=== PATIENT | female | born 1980 | race Caucasian/White ===

== ENCOUNTER 2022-10-25 06:37 | Emergency (ER) | payer BC ==
[~2022-10-25] VITALS: Ht 157.5 cm; Wt 54.2 kg
[2022-10-25] MEDS ORDERED: KLONOPIN0.5 MG (07:11)
[2022-10-25] MEDS ORDERED: CEPHALEXIN500 M1 PO (08:00)
[2022-10-25 08:13] VITALS: BP 116/52
--- OUTSIDE RECORDS SUMMARY | 2022-10-25 08:21 | XMS ---
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 EThea VISIT COUNT (12 MO.) 1 NEETA [facility] TOTAL 1 NOTE: Visits indicate total known visits. ED/UCC VISIT TRACKING (12 MO.) 10/25/2022 06:38 [facility] [place] TYPE: Emergency COMPLAINT: - POSS UTI INPATIENT VISIT TRACKING (12 MO.) No inpatient visits to display in this time frame [id number]
== END 2022-10-25 08:15 | disposition home or self-care (01) ==
LOC: ED 06:37
DX: N39.0 Urinary tract infection, site not specified (principal)
CPT/HCPCS: 81001; 84703; 87088; 99283; A9270

== ENCOUNTER 2023-05-16 07:10 | Emergency (ER) | payer BC ==
[~2023-05-16] VITALS: Ht 157.5 cm; Wt 50.4 kg
[~2023-05-16 07:10] MED LIST: CEPHALEXIN500 M1 PO; KLONOPIN0.5 MG
--- OUTSIDE RECORDS SUMMARY | 2023-05-16 07:14 | XMS ---
PreManage Notification: YULY HADDAD Security Psych Np Events No recent Security Events currently on file CRITERIA MET - PDMP CARE PROVIDERS [place] [facility] Current PHONE: Unknown Fidelia has no Care Guidelines for this patient. EThea VISIT COUNT (12 MO.) 2 NEETA Petersen TOTAL 2 NOTE: Visits indicate total known visits. ED/UCC VISIT TRACKING (12 MO.) 05/16/2023 07:11 [facility] TYPE: Emergency COMPLAINT: - VAGINAL PAIN 10/25/2022 06:38 [facility] [place] TYPE: Emergency COMPLAINT: - POSS UTI DIAGNOSES: - Dysuria - Urinary tract infection, site not specified INPATIENT VISIT TRACKING (12 MO.) No inpatient visits to display in this time frame [id number]
[2023-05-16] MEDS ORDERED: RIZATRIPTAN10 M1 PO (07:22)
[2023-05-16] MEDS ORDERED: CLONAZEPAM0.5 MG PO (07:23)
[2023-05-16] MEDS ORDERED: FLUCONAZOLE150 MG PO (07:23)
[2023-05-16 07:44] LABS: BILIRUBIN, URINE NEGATIVE (negative); BLOOD/HGB, URINE SMALL (Negative); KETONE, URINE NEGATIVE (Negative); LEUK ESTERASE, URINE MODERATE (negative); NITRITE, URINE NEGATIVE (negative); PH, URINE 6.5 (5-7)
[2023-05-16 07:51] LABS: EPITHELIAL CELLS, URINE SQUAMOUS 2+ /lpf (0-1+)
[2023-05-16 07:53] LABS: REFLEX CULTURE, URINE Yes (No)
[2023-05-16 09:10] LABS: N. GONORRRHOEAE BY PCR NOT DETECTED (NOT DETECT)
[2023-05-16] MEDS ORDERED: METRONIDAZOLE500 MG PO (09:14)
[2023-05-16] MEDS ORDERED: DIFLUCAN200 MG PO (09:14)
[2023-05-16] MEDS ORDERED: CEPHALEXIN500 M1 PO (09:14)
[2023-05-16 09:19] VITALS: BP 112/62
== END 2023-05-16 09:19 | disposition home or self-care (01) ==
LOC: ED 07:10
PROVIDERS: Emergency Medicine
DX: N39.0 Urinary tract infection, site not specified (principal)
CPT/HCPCS: 81001; 84703; 87077; 87088; 87186; 99283